=== PATIENT | male | born 1980 | race Caucasian/White ===

== ENCOUNTER → 2018-11-03 | Outpatient (CLI) | payer BC ==
--- NOTE | 2018-11-03 17:08 | Diagnostic Imaging Report ---
EXAM: US SOFT TISSUE NECK/HEAD DATE: 11/03/2018 4:19 PM INDICATION: Submandibular discomfort COMPARISON: None FINDINGS: Grayscale and color flow Doppler ultrasound of the neck, including right and left parotid and submandibular areas, was performed. No discrete solid or cystic mass is seen. IMPRESSION: No masses are seen by ultrasound in the cervical region. Signed by: Dr. Pool Camacho M.D. on 11/03/2018 5:05 PM
== END ==
LOC: US 16:09
PROVIDERS: ATTEND Family Medicine
DX: R07.0 Pain in throat (principal); M27.9 Disease of jaws, unspecified; M26.623 Arthralgia of bilateral temporomandibular joint; Z87.891 Personal history of nicotine dependence
CPT/HCPCS: 76536